=== PATIENT | male | born 1965 | race American Indian/Alaskan Native ===

== ENCOUNTER 2018-08-13 01:19 | Emergency (ER) | payer OTHER ==
[2018-08-13 01:35] VITALS: BP 125/83; PULSE 63; RESP 18; TEMP 97.8; O2SAT 98
[2018-08-13] MEDS ORDERED: cefTRIAXone (Rocephin) 250 mg Inj IM ONE (02:09)
--- NOTE | 2018-08-13 02:12 | ED PDOC ---
HPI: Male Pain Chief Complaint (Provider): dysuria History Per: Patient History/Exam Limitations: no limitations Onset/Duration Of Symptoms: Days (4) Current Symptoms Are (Timing): Still Present Quality Of Discomfort: Burning, "Pain" Additional Complaint(s): 53 y/o male presents for evaluation of dysuria x 4 days. Patient states he had unprotected sex 1 week ago and thinks he may have an STD as symptoms similar to when he had one in past. Denies fever, nausea/vomiting, abdominal pain, penile discharge, testicular pain/swelling <Jayla Wise - Last Filed: 08/13/18 03:19> <Jerry Leiva - Last Filed: 08/13/18 04:00> Time Seen by Provider: 08/13/18 01:44 Chief Complaint (Nursing): Male Genitourinary Past Medical History Reviewed: Historical Data, Nursing Documentation, Vital Signs Vital Signs: Last Vital Signs Temp 97.8 F 08/13/18 01:33 Pulse 63 08/13/18 01:33 Resp 18 08/13/18 01:33 BP 125/83 08/13/18 01:33 Pulse Ox 98 08/13/18 01:33 - Medical History PMH: Asthma Denies: Chronic Kidney Disease - Family History Family History: States: Unknown Family Hx - Immunization History Hx Tetanus Toxoid Vaccination: No Hx Influenza Vaccination: No Hx Pneumococcal Vaccination: No <Jayla Wise - Last Filed: 08/13/18 03:19> Vital Signs: Last Vital Signs Temp 97.8 F 08/13/18 01:33 Pulse 63 08/13/18 01:33 Resp 18 08/13/18 01:33 BP 125/83 08/13/18 01:33 Pulse Ox 98 08/13/18 03:19 <Jerry Leiva - Last Filed: 08/13/18 04:00> - Home Medications Home Medications: Ambulatory Orders Medication Instructions Recorded RX: Aspirin [Aspirin Chewable] 1 tab PO DAILY 07/17/18 - Allergies Allergies/Adverse Reactions: Allergies Allergy/AdvReac Type Severity Reaction Status Date / Time No Known Allergies Allergy Unverified 07/17/18 19:47 Review of Systems ROS Statement: Except As Marked, All Systems Reviewed And Found Negative Genitourinary Male: Positive for: Dysuria <Frandy,Jayla C - Last Filed: 08/13/18 03:19> Physical Exam - Reviewed Nursing Documentation Reviewed: Yes Vital Signs Reviewed: Yes - Physical Exam Appears: Positive for: Well, Non-toxic, No Acute Distress Head Exam: Positive for: ATRAUMATIC, NORMAL INSPECTION, NORMOCEPHALIC Cardiovascular/Chest: Positive for: Regular Rate, Rhythm Respiratory: Positive for: Normal Breath Sounds Gastrointestinal/Abdominal: Positive for: Normal Exam Male Genital Exam: Positive for: normal genitalia, other (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 Negative for: scrotum tenderness (R), scrotum tenderness (L), testicular tenderness (R), testicular tenderness (L), urethral discharge Extremity: Positive for: Normal ROM Neurologic/Psych: Positive for: Alert, Oriented (x3) <Frandy,Jayla C - Last Filed: 08/13/18 03:19> - ECG O2 Sat by Pulse Oximetry: 98 - Progress ED Course And Treament: u/a, c&S, gc/chlamydia Patient requesting prophylactic STD treatment in ED; Rocephin IM, Zithromax PO ordered Patient educated on safe sex Advised follow up PMD within 2-3 days Return precautions given <FrandyJayla C - Last Filed: 08/13/18 03:19> Disposition - Patient ED Disposition Is Patient to be Admitted: No Counseled Patient/Family Regarding: Studies Performed, Diagnosis, Need For Followup - Disposition Disposition: Routine/Home Disposition Time: 03:15 <Jayla Wise C - Last Filed: 08/13/18 03:19> <Jerry Leiva - Last Filed: 08/13/18 04:00> - Clinical Impression Clinical Impression: Dysuria, Concern about STD in male without diagnosis - Disposition Condition: STABLE Instructions: Urethritis, Dysuria, Adult (DC) - PA / [employer] / Resident Statement MD/DO has reviewed & agrees with the documentation as recorded. <Jerry Leiva - Last Filed: 08/13/18 04:00>
[2018-08-13] MEDS ORDERED: cefTRIAXone (Rocephin) 250 mg Inj ONE (02:29)
[2018-08-13 02:30] LABS: SQUAMOUS EPITHIAL 1 /hpf (0-5); URINE BACTERIA RARE (<OCC); URINE BILIRUBIN NEGATIVE (NEGATIVE); URINE BLOOD NEGATIVE (NEGATIVE); URINE CLARITY CLEAR (Clear); URINE COLOR YELLOW (YELLOW); URINE GLUCOSE (UA) NEG (Normal); URINE LEUKOCYTE ESTERASE NEG Leu/uL (Negative); URINE PROTEIN NEGATIVE (NEGATIVE); URINE UROBILINOGEN 0.2-1.0 mg/dL (0.2-1.0)
[2018-08-13] MEDS ORDERED: Sterile Water 10 ML IV ONE (02:30)
== END 2018-08-13 03:28 | disposition home or self-care (01) ==
LOC: H.ER 01:19
DX: Z11.3 Encounter for screening for infections with a predominantly sexual mode of transmission (principal); R30.0 Dysuria
CPT/HCPCS: 81003; 87086; 87491; 87591; 96372; 99282; J0696

== ENCOUNTER 2019-04-09 22:21 | Emergency (ER) | payer MEDICAID, OTHER ==
[2019-04-09 22:28] VITALS: O2SAT 98
[2019-04-09] MEDS ORDERED: cefTRIAXone (Rocephin) 250 mg Inj IM STA (23:19)
[2019-04-09] MEDS ORDERED: cefTRIAXone (Rocephin) 250 mg Inj ONE (23:31)
[2019-04-09] MEDS ORDERED: Sodium Chloride 0.9% 10 ML IV ONE (23:32)
--- NOTE | 2019-04-09 23:51 | ED PDOC ---
HPI: General Adult Time Seen by Provider: 04/09/19 23:19 Chief Complaint (Nursing): Medical Clearance Chief Complaint (Provider): Medical Clearance History Per: Patient History/Exam Limitations: no limitations Additional Complaint(s): 54 y/o male with no PMHx presents to the ED complaining of dysuria for a few days. Patient states that he had unprotected sex 7 days ago and since then he has been having burning on urination. Patient is unsure if he has discharge or not. 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 He states that he has not noticed if he has discharge or not. Past Medical History Reviewed: Historical Data, Nursing Documentation, Vital Signs Vital Signs: Last Vital Signs Temp 98.2 F 04/09/19 22:28 Pulse 73 04/09/19 22:28 Resp 16 04/09/19 22:28 BP 113/77 04/09/19 22:28 Pulse Ox 98 04/09/19 22:28 Primary Care Provider: FAMILY PROVIDER,NO - Medical History PMH: Asthma Denies: Chronic Kidney Disease - Family History Family History: States: Unknown Family Hx - Immunization History Hx Tetanus Toxoid Vaccination: No Hx Influenza Vaccination: No Hx Pneumococcal Vaccination: No - Home Medications Home Medications: Ambulatory Orders Medication Instructions Recorded Aspirin [Aspirin Chewable] 1 tab PO DAILY 07/17/18 - Allergies Allergies/Adverse Reactions: Allergies Allergy/AdvReac Type Severity Reaction Status Date / Time No Known Allergies Allergy Unverified 07/17/18 19:47 Review of Systems ROS Statement: Except As Marked, All Systems Reviewed And Found Negative Genitourinary Male: Positive for: Dysuria Physical Exam - Reviewed Nursing Documentation Reviewed: Yes Vital Signs Reviewed: Yes - Physical Exam Appears: Positive for: Well, Non-toxic, No Acute Distress Head Exam: Positive for: ATRAUMATIC, NORMAL INSPECTION, NORMOCEPHALIC Skin: Positive for: Normal Color, Warm, DRY Eye Exam: Positive for: EOMI, Normal appearance, PERRL ENT: Positive for: Normal ENT Inspection Neck: Positive for: Normal, Painless ROM Cardiovascular/Chest: Positive for: Regular Rate, Rhythm. Negative for: Murmur Respiratory: Positive for: Normal Breath Sounds. Negative for: Respiratory Distress Gastrointestinal/Abdominal: Positive for: Normal Exam, Soft. Negative for: Tenderness Male Genital Exam: Positive for: other (Patient is refusing genital exam) Back: Positive for: Normal Inspection Extremity: Positive for: Normal ROM. Negative for: Pedal Edema, Deformity Neurological/Psych: Positive for: Awake, Alert, Normal Tone. Negative for: Motor/Sensory Deficits - ECG O2 Sat by Pulse Oximetry: 98 (RA) Pulse Ox Interpretation: Normal Medical Decision Making Medical Decision Making: Initial Plan: aZithromycin 1g Rocephin 250 mg --Udip -- urine chlamydia and gonorrhea Patient is refusing to have genital exam. He denies having any lesions or rashes to penis. Patient is requesting to be treated for STD prophylactically . Patient is refusing to ave genital culture and refusing HIV. He reports he will go to the health clinic to have further testing done. At ED he agrees to give urine. UDip performed and urine was checked for chlamydia and gonorrhea. No further work-up needed in ED. Patient o follow up in health clinic. patient educated on importance of safe sex. Return to ED precautions given. Patient states understanding and agrees with plan. Scribe Attestation: Documented by Orlando Rios, acting as a scribe for Catherine Verma MD. Provider Scribe Attestation: All medical record entries made by the Scribe were at my direction and personally dictated by me. I have reviewed the chart and agree that the record accurately reflects my personal performance of the history, physical exam, medical decision making, and the department course for this patient. I have also personally directed, reviewed, and agree with the discharge instructions and disposition. Disposition - Clinical Impression Clinical Impression: Possible exposure to STD - Patient ED Disposition Is Patient to be Admitted: No Counseled Patient/Family Regarding: Diagnosis, Need For Followup - Disposition Disposition: Routine/Home Disposition Time: 23:15 Condition: GOOD Instructions: STD Prevention Forms: [facility] (Slovak) - POA Present On Arrival: None
[2019-04-09 23:53] VITALS: BP 115/78; PULSE 71; RESP 18; TEMP 98
== END 2019-04-10 00:13 | disposition home or self-care (01) ==
LOC: H.ER 22:21
DX: Z20.2 Contact with and (suspected) exposure to infections with a predominantly sexual mode of transmission (principal); J45.909 Unspecified asthma, uncomplicated
CPT/HCPCS: 87086; 87491; 87591; 96372; 99282; J0696